=== PATIENT | male | born 1980 | race Caucasian/White ===

== ENCOUNTER 2020-10-21 09:41 | Emergency (ER) | payer OTHER ==
[~2020-10-21 09:41] MED LIST: LORTAB 7.5-3251 EACH PO; ZYVOX 600 MG T600 MG PO
[2020-10-21 10:04] LABS: HEMOGLOBIN 14.6 gm/dl (14.0-17.5); RED BLOOD COUNT 4.89 M/UL (4.20-5.50); WHITE BLOOD COUNT 9.6 K/UL (4.5-11.0)
[2020-10-21 10:27] LABS: BUN/CREATININE RATIO 22 (0-10)
== END 2020-10-21 11:45 | disposition short-term general hospital (02) ==
LOC: ER1 09:41
PROVIDERS: Emergency Medicine
DX: S80.211A Abrasion, right knee, initial encounter (principal); R91.1 Solitary pulmonary nodule; Z20.822 Contact with and (suspected) exposure to COVID-19; W19.XXXA Unspecified fall, initial encounter
CPT/HCPCS: 70450; 71260; 72125; 72170; 73552; 73560; 73590; 73620; 80053; 85025; 85610; 85730; 86850; 86900; 86901; 93005; 99285; G0480; J1170; J2405; Q9967; U0002

== ENCOUNTER 2021-09-29 11:11 | Emergency (ER) | payer OTHER ==
[2021-09-29 12:00] LABS: HEMOGLOBIN 13.2 gm/dl (14.0-17.5); RED BLOOD COUNT 4.52 M/UL (4.20-5.50); WHITE BLOOD COUNT 7.7 K/UL (4.5-11.0)
[2021-09-29 12:34] LABS: BUN/CREATININE RATIO 26 (0-10)
== END 2021-09-29 14:31 | disposition home or self-care (01) ==
LOC: ER1 11:11
PROVIDERS: Nurse Practitioner
DX: R06.00 Dyspnea, unspecified (principal); I10 Essential (primary) hypertension; Z86.711 Personal history of pulmonary embolism; Z88.0 Allergy status to penicillin; Z20.822 Contact with and (suspected) exposure to COVID-19
CPT/HCPCS: 0240U; 71045; 80053; 82550; 82553; 84484; 85025; 85379; 93005; 99285